=== PATIENT | male | born 1965 | race Caucasian/White ===

== ENCOUNTER 2018-06-27 14:48 | Emergency (ER) | payer OTHER ==
[2018-06-27 14:56] VITALS: BP 139/90
[2018-06-27] MEDS ORDERED: TDAP ADULT 0.5 ML INJ (BOOSTRIX) IM ONE (15:02)
--- NOTE | 2018-06-27 15:04 | EDPHY ---
H & P Time Seen by Provider: 06/27/18 14:50 HPI/ROS: CHIEF COMPLAINT: Left finger laceration HISTORY OF PRESENT ILLNESS: 52-year-old imtwo-khxv-tkieeien male was cutting open a pack of currie sustained accidental laceration to his left index finger distal phalanx radial aspect. Tetanus out-of-date. Occurred shortly prior to arrival. This was accidental. No paresthesia. PRIMARY CARE PROVIDER: REVIEW OF SYSTEMS: 10 systems reviewed and are negative with exception of illness mentioned in the history of present illness PHYSICAL EXAM (Prior to examination, patient consented to physical exam, hands were washed and my usual and customary physical exam procedures followed) 1) GENERAL: Well-developed, well-nourished, alert and oriented. Appears to be in no acute distress. 2) HEAD: Normocephalic 3) HEENT: sclera anicteric 4) LUNGS: Breathing comfortably. 5) SKIN: Left index finger distal phalanx radial aspect 1.5 cm linear superficial laceration. No underlying osseous discomfort 6) MUSCULOSKELETAL: FDP FDS intact. Extensor function at the MCP PIP D IP intact. 7) NEUROLOGIC: Full sensation two-point discrimination intact. Smoking Status: Current every day smoker Constitutional: Initial Vital Signs Temperature (C) 36.5 C 06/27/18 14:54 Heart Rate 88 06/27/18 14:54 Respiratory Rate 18 06/27/18 14:54 Blood Pressure 139/90 H 06/27/18 14:54 O2 Sat (%) 97 06/27/18 14:54 O2 Delivery Mode Room Air Allergies/Adverse Reactions: Unable to Assess Allergy (Verified 06/27/18 14:53) Home Medications: Medication Instructions Recorded Aspirin EC 81 mg (*) 06/27/18 Lisinopril 06/27/18 MDM/Departure - MDM Procedures: Procedure: Laceration repair. I explained the indications, risks and benefits for both laceration repair and anesthetic administration. Verbal consent was obtained from the patient. The laceration on the left index finger was anesthetized using 0.5% bupivicaine without epinephrine digital nerve block. After anesthetic administered the patient was observed for a period of time and had no apparent adverse effects. The wound was cleaned, prepped, draped in normal sterile fashion and explored to its base. No foreign body seen, no foreign bodies palpated. There were no deep structures involved. No tendon injury was identified. The wound was repaired with 2 simple interrupted 5 O Ethilon sutures. The wound repair was simple. The procedure was performed by myself. Patient has been informed that scarring will occur, although efforts have been made to minimize this. ED Course/Re-evaluation: Care of patient under supervision of secondary supervising physician Dr Malik with whom I discussed case. - Depart Disposition: Home, Routine, Self-Care Clinical Impression: Laceration of left index finger Qualifiers: Encounter type: initial encounter Damage to nail status: without damage Foreign body presence: without foreign body Qualified Code(s): S61.211A - Laceration without foreign body of left index finger without damage to nail, initial encounter Condition: Good Instructions: Laceration (ED) Additional Instructions: Return to the ER if you develop redness, swelling, discharge, warmth to the wound, red streaks going up your arm, or any other symptoms that concern you. Referrals: Return, to the ER in 10 days for suture removal [Other] - As per Instructions
== END 2018-06-27 15:46 | disposition home or self-care (01) ==
PROC: 0HQGXZZ Repair Left Hand Skin, External Approach (ICD-10-PCS; principal; 2018-06-27)
DX: S61.211A Laceration without foreign body of left index finger without damage to nail, initial encounter (principal); W26.0XXA Contact with knife, initial encounter; Z23 Encounter for immunization